=== PATIENT | male | born 1990 | race Caucasian/White ===

== ENCOUNTER → 2016-12-11 | Outpatient (CLI) | payer BC ==
--- NOTE | 2016-12-11 20:20 | NEURPT ---
DATE: 12/11/2016 ELECTROENCEPHALOGRAM An outpatient EEG for a 26-year-old gentleman with history of seizures, last episode was in 10/2016. He had craniotomy in the right parietal area and shunt placement. He is currently on: 1. Vimpat. 2. Clonazepam. 3. Depakote. 4. Keppra. 5. Lamotrigine. Routine EEG was recorded digitally. [id number] and [id number] montages were recorded and reviewed. All impedances were measured and recorded. Cap electrodes were placed in accordance with International 10-20 system of electrode placement. Symmetrically distributed background activity of low to medium amplitude ranging in frequency between 8 to 10 cycles per second was seen in the awake state. This activity attenuates with eye opening. Photic stimulation produces no definite driving. Eye opening attenuates the background. Hyperventilation elicits no epileptiform activity. When the patient gets drowsy and falls asleep , background rhythm gets slightly less organized, minimally slower background was seen. Infrequently it seems that there is some spike wave activity slightly standing out from the background with phase reversal pointing to the left central parietal area. In proper clinical context, could be epileptogenic. Correlate with imaging. No ongoing electrographic seizures or lateralized slowing observed. IMPRESSION: Abnormal study secondary to left central parietal intermittent spikes, not rhythmical, which could be epileptogenic. Dictated By: DINH TOWNSEND/ILYA Conf#: [id number] DID#: [id number] HENRIK
== END | disposition home or self-care (01) ==
LOC: EEG 10:32 → EDSEX 11:00
PROVIDERS: ATTEND Psychiatry & Neurology Neurology
DX: R56.9 Unspecified convulsions (principal)
CPT/HCPCS: 95819

== ENCOUNTER → 2019-05-03 | Outpatient (CLI) | payer BC | END | disposition home or self-care (01) | LOC: EEG 09:53 | PROVIDERS: ATTEND Psychiatry & Neurology Neurology | DX: R56.9 Unspecified convulsions (principal) | CPT/HCPCS: 95819 ==